=== PATIENT | female | born 1940 | race African-American/Black ===

== ENCOUNTER 2017-01-31 07:23 | Day surgery (SDC) | payer OTHER ==
[2017-01-29 12:39] VITALS: BMI 28.8
[2017-01-31] MEDS ORDERED: PROPOFOL 20 ML ONE ×2 (07:26)
[2017-01-31] MEDS ORDERED: LIDOCAINE HCL/PF 2% SDV 5ML VIAL ONE (07:36)
[2017-01-31 07:44] VITALS: TEMP 97.6
[2017-01-31 09:27] VITALS: BP 133/66; PULSE 61
--- NOTE | 2017-02-02 17:40 | PATH ---
Surgical Pathology Report Patient Name: CARMELITA RITCHIE Med. Rec. #: [id number] /Age/Gender: 1940 (Age: 76) / F Account: [id number] Location: [facility] Taken: 01/31/2017 Received: 01/31/2017 Reported: 02/02/2017 Physicians: Franko Hernandez M.D. Specimen(s) Received BX RECTO SIGMOID Clinical History Preoperative diagnosis: History of polyps Postoperative diagnosis: Polyp Final Diagnosis RECTOSIGMOID, BIOPSY: HYPERPLASTIC POLYP WITH BENIGN/REACTIVE LYMPHOID AGGREGATE. Electronically Signed Nicki Olmstead M.D. Gross Description Received in formalin, labeled "rectosigmoid" are 2 mclean, irregular portions of soft tissue averaging 0.3 cm. in greatest dimension. The specimens are submitted in toto in one cassette. 02/01/201702/01/2017
== END 2017-01-31 09:30 | disposition home or self-care (01) ==
LOC: FASU 07:23
PROVIDERS: ATTEND Internal Medicine Gastroenterology
PROC: 0DBN8ZX Excision of Sigmoid Colon, Via Natural or Artificial Opening Endoscopic, Diagnostic (ICD-10-PCS; principal; 2017-01-31 08:30)
DX: Z86.010 Personal history of colon polyps (principal); K57.32 Diverticulitis of large intestine without perforation or abscess without bleeding
CPT/HCPCS: 88305-TC